=== PATIENT | female | born 1995 ===

== ENCOUNTER → 2024-12-02 | Outpatient (CLI) | payer OTHER | LOC: LAB 14:02 → LAB SHORT 14:02 | PROVIDERS: Advanced Practice Midwife | DX: Z01.419 Encounter for gynecological examination (general) (routine) without abnormal findings (principal) | CPT/HCPCS: G0123 ==

== ENCOUNTER → 2025-05-12 | Outpatient (CLI) | payer OTHER | LOC: LAB SHORT 15:16 → LAB 15:16 | DX: O09.90 Supervision of high risk pregnancy, unspecified, unspecified trimester (principal) | CPT/HCPCS: 87081; 87150 ==